=== PATIENT | male | born 1995 ===

== ENCOUNTER 2016-10-31 17:09 | Emergency (ER) | payer OTHER ==
[2016-10-31 17:16] VITALS: BP 137/93; PULSE 75; RESP 20; TEMP 98.7; O2SAT 98
--- NOTE | 2016-10-31 18:06 | ED PDOC ---
HPI: Back Time Seen by Provider: 10/31/16 17:16 Chief Complaint (Nursing): Back Pain Additional Complaint(s): pt. is a 21 yo male, no PMH, presents to ED with complaints of lower back pain radiating down into lt. leg since yesterday. denies any injury or trauma. states pain is worse with any change in position. states he took tylenol at 4pm with no relief. No bowel or bladder dysfunction Past Medical History Reviewed: Nursing Documentation, Vital Signs Vital Signs: Last Vital Signs Temp 98.7 F 10/31/16 17:14 Pulse 75 10/31/16 17:14 Resp 20 10/31/16 17:14 BP 137/93 H 10/31/16 17:14 Pulse Ox 98 10/31/16 17:14 - Medical History PMH: Bipolar Disorder Denies: Diabetes, Hepatitis, HIV, HTN, Seizures, Sexually Transmitted Disease - Surgical History Surgical History: No Surg Hx - Family History Family History: States: Unknown Family Hx - Living Arrangements Living Arrangements: With Friends/Others - Immunization History Hx Influenza Vaccination: No - Home Medications Home Medications: Ambulatory Orders Medication Instructions Recorded Ibuprofen [Motrin] 600 mg PO Q8 #30 tab 05/03/16 Metaxalone [Skelaxin] 800 mg PO Q8 #30 tablet 05/03/16 Ibuprofen [Motrin] 600 mg PO Q6 #20 tab 10/31/16 - Allergies Allergies/Adverse Reactions: Allergies Allergy/AdvReac Type Severity Reaction Status Date / Time No Known Allergies Allergy Verified 10/31/16 17:13 Review of Systems ROS Statement: Except As Marked, All Systems Reviewed And Found Negative Musculoskeletal: Positive for: Back Pain Physical Exam - Reviewed Nursing Documentation Reviewed: Yes Vital Signs Reviewed: Yes - Physical Exam Appears: Positive for: Well, Non-toxic, No Acute Distress Head Exam: Positive for: ATRAUMATIC, NORMAL INSPECTION, NORMOCEPHALIC Skin: Positive for: Normal Color, Warm, DRY Eye Exam: Positive for: EOMI, Normal appearance, PERRL ENT: Positive for: Normal ENT Inspection Neck: Positive for: Normal, Painless ROM Cardiovascular/Chest: Positive for: Regular Rate, Rhythm Respiratory: Positive for: CNT, Normal Breath Sounds Gastrointestinal/Abdominal: Positive for: Normal Exam, Bowel Sounds, Soft Back: Positive for: Normal Inspection, Other ((+) straight leg raise at 60 degrees). Negative for: L CVA Tenderness, R CVA Tenderness, Vertebral Tenderness, Decreased ROM Extremity: Positive for: Normal ROM Neurologic/Psych: Positive for: Alert, Oriented - ECG O2 Sat by Pulse Oximetry: 98 Medical Decision Making Medical Decision Making: Pt educated on sciatica type pain, as well as treatment options. Advised that narcotics will not be prescribed for the pain, will try Motrin and Flexeril at this time. Pt politely declined and asked to leave ED. Disposition - Clinical Impression Clinical Impression: Back pain - Patient ED Disposition Is Patient to be Admitted: No - Disposition Disposition: Routine/Home Disposition Time: 18:06 Condition: STABLE Prescriptions: Ibuprofen [Motrin] 600 mg PO Q6 #20 tab Instructions: Chronic Back Pain (ED) - POA Present On Arrival: None
== END 2016-10-31 17:48 | disposition home or self-care (01) ==
LOC: H.ER 17:09
DX: M54.5 Low back pain (principal)